=== PATIENT | female | born 1975 | race Hispanic/Latino ===

== ENCOUNTER 2018-05-15 17:53 | Emergency (ER) | payer BC ==
[2018-05-15 18:04] VITALS: O2SAT 99
--- NOTE | 2018-05-15 18:36 | C.PDOC ---
History Of Present Illness 42-year-old female presents to the ER for evaluation of 3 day history of diarrhea. Patient reports on Sunday she developed diarrhea and vomiting, and was uncomfortable all night. She notes her appetite was decreased. On Sunday, the vomiting stopped but diarrhea continued, and patient noticed some blood at one point. Pain was intermittent, coming and going spontaneously. Today patient notes the diarrhea continued, and she developed mild lower abdominal pain. She denies any nausea or vomiting today, but has had no appetite or PO intake. Otherwise she denies any fever, chills, dizziness, SOB, chest pain, or urinary symptoms. Time Seen by Provider: 05/15/18 18:21 Chief Complaint (Nursing): Abdominal Pain History Per: Patient History/Exam Limitations: no limitations Onset/Duration Of Symptoms: Days Current Symptoms Are (Timing): Still Present Associated Symptoms: Vomiting, Diarrhea, Loss Of Appetite Past Medical History Reviewed: Historical Data, Nursing Documentation, Vital Signs Vital Signs: Last Vital Signs Temp 98.2 F 05/15/18 18:02 Pulse 90 05/15/18 18:02 Resp 18 05/15/18 18:02 BP 140/97 H 05/15/18 18:02 Pulse Ox 99 05/15/18 21:12 - Medical History PMH: Diabetes, Hypothyroidism Surgical History: No Surg Hx Family History: States: No Known Family Hx - Social History Hx Alcohol Use: Yes Hx Substance Use: No Review Of Systems Except As Marked, All Systems Reviewed And Found Negative. Constitutional: Negative for: Fever, Chills Cardiovascular: Negative for: Chest Pain Respiratory: Negative for: Shortness of Breath Gastrointestinal: Positive for: Vomiting (none today), Abdominal Pain, Diarrhea. Negative for: Constipation, Hematemesis Genitourinary: Negative for: Dysuria, Frequency, Incontinence Neurological: Negative for: Dizziness Physical Exam - Physical Exam Appears: Non-toxic, No Acute Distress Skin: Normal Color, Warm, No Pale Head: Atraumatic, Normacephalic Eye(s): bilateral: Normal Inspection, PERRL, EOMI Nose: Normal Oral Mucosa: Moist Neck: Normal ROM, Supple Chest: Symmetrical Cardiovascular: Rhythm Regular, No Murmur Respiratory: Normal Breath Sounds, No Rales, No Rhonchi, No Wheezing Gastrointestinal/Abdominal: Bowel Sounds (present), Soft, Tenderness (mild tenderness to the left lower quadrant), No Guarding, No Rebound Back: Normal Inspection, No CVA Tenderness Extremity: Bilateral: Atraumatic, Normal Color And Temperature, Normal ROM Pulses: Left Dorsalis Pedis: Normal, Right Dorsalis Pedis: Normal Neurological/Psych: Oriented x3, Normal Speech Gait: Steady ED Course And Treatment - Laboratory Results Result Diagrams: 05/15/18 18:48 05/15/18 18:48 Lab Interpretation: Abnormal (WBC elevated 13.2) O2 Sat by Pulse Oximetry: 99 (RA) Pulse Ox Interpretation: Normal - CT Scan/US CT A/P Other Rad Studies (CT/US): Read By Radiologist, Radiology Report Reviewed CT/US Interpretation: Name: EDUIN CRANE Age: 42Years F Date: 05/15/2018. Requesting Physician: Melvina Humphries : [id number]. [employer] Procedure Ordered As Accession Number of. Images. CT ABDOMEN/PELVIS. W. CT ABD PELVIS PO IV. CONTRAST. [id number]. J. 560. Provided Clinical History: abdominal pain with bloody diarrhea. EXAM: CT Abdomen and Pelvis With Intravenous Contrast. EXAM DATE/TIME: 05/15/2018 7:05 PM. CLINICAL HISTORY: 42 years old, female; Pain; Abdominal pain; Flank; Left upper quadrant (luq); Additional info: Abdominal pain with bloody diarrhea. TECHNIQUE: Axial computed tomography images of the abdomen and pelvis with intravenous contrast. All CT scans at this facility use at least one of these dose optimization techniques: automated. exposure control; mA and/or kV adjustment per patient size (includes targeted exams where dose is. matched to clinical indication); or iterative reconstruction. Coronal and sagittal reformatted images were created and reviewed. CONTRAST: 100 ml of OMNIPAQUE 300 administered intravenously. COMPARISON: No relevant prior studies available. FINDINGS: Lower thorax: No acute findings. ABDOMEN: Liver: Fatty infiltration. Gallbladder and bile ducts: No calcified stones. No ductal dilation. Pancreas: Normal. No ductal dilation. Spleen: No splenomegaly. Adrenals: No mass. Kidneys and ureters: Normal. No hydronephrosis. Stomach and bowel: [id number] mural thickening mid to distal descending colon. Mild. stranding within adjacent fat. No obstruction. Appendix: Normal caliber. No inflammation. PELVIS: Bladder: Unremarkable as visualized. Reproductive: Unremarkable as visualized. ABDOMEN and PELVIS: Intraperitoneal space: No free air. No significant fluid collection. Bones/joints: Early degenerative changes of spine. No acute fracture. Soft tissues: Tiny umbilical hernia containing fat. Vasculature: Normal. No abdominal aortic aneurysm. Lymph nodes: No enlarged lymph nodes. IMPRESSION: Colitis, nonspecific. Consider inflammatory, infectious, or ischemic etiologies. Thank you for allowing us to participate in the care of your patient. Dictated and Authenticated by: Rigoberto Agrawal MD. 05/15/2018 9:05 PM Eastern Time ([place] & [place]) Reevaluation Time: 21:15 Reassessment Condition: Improved Medical Decision Making Medical Decision Making: Initial Impression: 42 y/o F with abd pain and diarrhea Time: 18:29 Initial Plan: --Blood work --Urinalysis 19:00 Labs reviewed, elevated WBC 13.2k. CT A/P ordered. Disposition Counseled Patient/Family Regarding: Studies Performed, Diagnosis, Need For Followup, Rx Given - Disposition Referrals: [facility] [Outside] Disposition: HOME/ ROUTINE Disposition Time: 21:17 Condition: STABLE Prescriptions: Ciprofloxacin [Cipro] 1 tab PO BID #14 tab Forms: [facility] (Turkmen), General Discharge Instructions - Clinical Impression Clinical Impression: Colitis, Abdominal pain, Diarrhea - Scribe Statement The provider has reviewed the documentation as recorded by the Holli Rebolledo Provider Attestation: All medical record entries made by the Lachoibcamron were at my direction and personally dictated by me. I have reviewed the chart and agree that the record accurately reflects my personal performance of the history, physical exam, medical decision making, and the department course for this patient. I have also personally directed, reviewed, and agree with the discharge instructions and disposition.
[2018-05-15 18:53] LABS: BASO # 0.1 K/uL (0.0-0.2); BASO % 0.7 % (0.0-2.0); EOS # 0.3 K/uL (0.0-0.7); EOS % 1.9 % (0.0-4.0); LYMPH # 2.9 K/uL (1.0-4.3); MEAN CORPUSCULAR HEMOGLOBIN 27.2 pg (27.0-31.0); MEAN CORPUSCULAR HGB CONC 33.2 g/dL (33.0-37.0); MEAN PLATELET VOLUME 7.4 fL (7.2-11.7); MONO # 0.6 K/uL (0.0-0.8); MONO % 4.3 % (0.0-10.0); NEUT # 9.4 K/uL (1.8-7.0); NEUT % 71.1 % (50.0-75.0); NRBC % 0.1 % (0.0-2.0); RBC 4.4 Mil/uL (3.80-5.20); RED CELL DISTRIBUTION WIDTH 13.8 % (11.5-14.5); WHITE BLOOD COUNT 13.2 K/uL (4.8-10.8)
[2018-05-15 18:59] LABS: HCG,QUALITATIVE URINE NEGATIVE (NEGATIVE)
[2018-05-15 19:01] LABS: SQUAMOUS EPITHIAL 2 /hpf (0-5); URINE BILIRUBIN NEGATIVE (NEGATIVE); URINE BLOOD NEGATIVE (NEGATIVE); URINE CLARITY Clear (Clear); URINE COLOR Straw (YELLOW); URINE GLUCOSE (UA) NORMAL (Normal); URINE LEUKOCYTE ESTERASE NEG Leu/uL (Negative); URINE PROTEIN NEGATIVE (NEGATIVE); URINE UROBILINOGEN NORMAL mg/dL (0.2-1.0)
[2018-05-15 19:06] LABS: ALB/GLOB RATIO 1.4 (1.0-2.1); ALBUMIN 4.4 g/dL (3.5-5.0); ALT/SGPT 33 U/L (9-52); AST/SGOT 15 U/L (14-36); BLOOD UREA NITROGEN 11 mg/dL (7-17); CALCIUM 9.4 mg/dl (8.6-10.4); GFR AFRICAN-AMERICAN > 60; GFR NON-AFRICAN AMERICAN > 60; LIPASE 61 U/L (23-300)
[2018-05-15] MEDS ORDERED: Iohexol 240 (50 ml) PO ONE (19:07)
[2018-05-15] MEDS ORDERED: Iohexol 240 (50 ml) ONE (19:12)
[2018-05-15] MEDS ORDERED: Iohexol 300 100 ML IJ ONE (19:57)
[2018-05-15 21:25] VITALS: BP 137/91; PULSE 87; RESP 16; TEMP 99.1
--- NOTE | 2018-05-16 09:15 | CT ---
Date of service: 05/15/2018 PROCEDURE: CT Abdomen and Pelvis with intravenous contrast HISTORY: abdominal pain with bloody diarrhea COMPARISON: None. TECHNIQUE: Multiple contiguous axial images were performed through the abdomen and pelvis with the use of intravenous contrast. Radiation dose: Total exam DLP = 908 mGy-cm. This CT exam was performed using one or more of the following dose reduction techniques: Automated exposure control, adjustment of the mA and/or kV according to patient size, and/or use of iterative reconstruction technique. FINDINGS: LOWER THORAX: Unremarkable. LIVER: Fatty infiltration of the liver. GALLBLADDER AND BILE DUCTS: Unremarkable. PANCREAS: Unremarkable. No gross lesion or ductal dilatation. SPLEEN: Unremarkable. ADRENALS: Unremarkable. No mass. KIDNEYS AND URETERS: Unremarkable. No hydronephrosis. No solid mass. VASCULATURE: Unremarkable. No aortic aneurysm. BOWEL: Mild to moderate mural thickening of the mid to distal descending colon. Mild stranding within the adjacent fat. APPENDIX: Unremarkable. Normal appendix. PERITONEUM: Unremarkable. No free fluid. No free air. LYMPH NODES: Unremarkable. No enlarged lymph nodes. BLADDER: Unremarkable. REPRODUCTIVE: Right adnexa measures up to 3.5 centimeters. BONES: Degenerative changes in the spine. OTHER FINDINGS: Small fat containing umbilical hernia. IMPRESSION: Thickening of the mid to distal descending colon suggestive for an underlying focal colitis. Clinical correlation. Consider inflammatory, infectious, or ischemic etiologies. Post treatment interval followup is recommended to ensure resolution. Additional findings as above. These findings were preliminarily reported at 9:05 p.m. on 05/15/[address] Rigoberto Agrawal from [employer]
== END 2018-05-15 21:28 | disposition home or self-care (01) ==
LOC: C.ER 17:53
DX: K52.9 Noninfective gastroenteritis and colitis, unspecified (principal); R10.32 Left lower quadrant pain
CPT/HCPCS: 74177; 80053; 81001; 83690; 84703; 85025; 99284; Q9966; Q9967